=== PATIENT | female | born 1980 | race Caucasian/White ===

== ENCOUNTER 2016-06-11 11:50 | Observation (INO) | payer OTHER ==
[~2016-06-11] VITALS: Ht 162.6 cm; Wt 131.1 kg
[~2016-06-11 11:50] MED LIST: ALPR0.255 PO; IBUP-2070 PO; TRAM50TA4 PO
[2016-06-11] MEDS ORDERED: PREN1TAB80 PO (12:36)
[2016-06-11 12:37] VITALS: BP 114/66
== END 2016-06-11 13:00 | disposition home or self-care (01) ==
LOC: 4S 11:50
PROVIDERS: ADMIT Obstetrics & Gynecology; ATTEND Obstetrics & Gynecology
DX: Z34.93 Encounter for supervision of normal pregnancy, unspecified, third trimester (principal); Z3A.34 34 weeks gestation of pregnancy
CPT/HCPCS: 59025; G0378

== ENCOUNTER 2016-06-14 17:15 | Observation (INO) | payer OTHER ==
[~2016-06-14 17:15] MED LIST changes: +PREN1TAB80 PO
[2016-06-14] MEDS ORDERED: MACR100 PO (17:36)
[2016-06-14 17:37] VITALS: BP 119/71
== END 2016-06-14 18:05 | disposition home or self-care (01) ==
LOC: 4S 17:15
PROVIDERS: ADMIT Obstetrics & Gynecology; ATTEND Obstetrics & Gynecology
DX: O62.9 Abnormality of forces of labor, unspecified (principal); O23.43 Unspecified infection of urinary tract in pregnancy, third trimester; O12.23 Gestational edema with proteinuria, third trimester; Z3A.34 34 weeks gestation of pregnancy
CPT/HCPCS: 59025; G0378

== ENCOUNTER 2016-06-18 10:10 | Observation (INO) | payer OTHER ==
[~2016-06-18] VITALS: Ht 162.6 cm; Wt 128.4 kg
[~2016-06-18 10:10] MED LIST changes: -ALPR0.255 PO; -IBUP-2070 PO; +MACR100 PO; -TRAM50TA4 PO
[2016-06-18 11:03] VITALS: BP 109/55
== END 2016-06-18 12:35 | disposition home or self-care (01) ==
LOC: 4S 10:10
PROVIDERS: ADMIT Obstetrics & Gynecology; ATTEND Obstetrics & Gynecology
DX: O99.013 Anemia complicating pregnancy, third trimester (principal); O99.213 Obesity complicating pregnancy, third trimester; Z3A.35 35 weeks gestation of pregnancy
CPT/HCPCS: 59025; G0378

== ENCOUNTER 2016-06-22 09:00 | Observation (INO) | payer OTHER ==
[~2016-06-22] VITALS: Ht 157.5 cm; Wt 130.2 kg
[2016-06-22 09:15] VITALS: BP 116/65
== END 2016-06-22 09:35 | disposition home or self-care (01) ==
LOC: 4S 09:00
PROVIDERS: ADMIT Obstetrics & Gynecology; ATTEND Obstetrics & Gynecology
DX: Z34.93 Encounter for supervision of normal pregnancy, unspecified, third trimester (principal); Z3A.35 35 weeks gestation of pregnancy
CPT/HCPCS: 59025; G0378

== ENCOUNTER 2016-06-25 18:29 | Observation (INO) | payer OTHER ==
[2016-06-25 18:54] VITALS: BP 127/79
== END 2016-06-25 20:30 | disposition home or self-care (01) ==
LOC: 4S 18:29
PROVIDERS: ADMIT Obstetrics & Gynecology; ATTEND Obstetrics & Gynecology
DX: O99.213 Obesity complicating pregnancy, third trimester (principal); Z3A.36 36 weeks gestation of pregnancy
CPT/HCPCS: 59025; G0378

== ENCOUNTER 2016-06-26 22:30 | Observation (INO) | payer OTHER ==
[~2016-06-26] VITALS: Ht 162.6 cm; Wt 133.8 kg
[2016-06-27] VITALS: BP 114/59
[2016-06-27 00:35] LABS: APPEARANCE,URINE CLOUDY (CLEAR); GLUCOSE, URINE (UA) 500 mg/dL (NEGATIVE); KETONES,URINE NEGATIVE (NEGATIVE); LEUKOCYTE ESTERASE ,URINE MODERATE (NEGATIVE); OCCULT BLOOD,URINE NEGATIVE (NEGATIVE); PROTEIN,URINE NEGATIVE (NEGATIVE)
[2016-06-27 00:38] LABS: ADD UA MICROSCOPIC YES
[2016-06-27 00:52] LABS: CALCIUM OXALATE CRYSTALS,UR Few /LPF (None Seen); RBC,URINE 0-2 /HPF (0-2); SQUAMOUS EPITHELIAL CELL,UR Moderate /LPF (None Seen)
== END 2016-06-27 01:40 | disposition home or self-care (01) ==
LOC: 4S 22:30
PROVIDERS: ADMIT Obstetrics & Gynecology; ATTEND Obstetrics & Gynecology
DX: O26.893 Other specified pregnancy related conditions, third trimester (principal); R10.2 Pelvic and perineal pain; R35.0 Frequency of micturition; N89.8 Other specified noninflammatory disorders of vagina; Z3A.36 36 weeks gestation of pregnancy
CPT/HCPCS: 36415; 59025; 81001; 87086; 89060; G0378 ×2

== ENCOUNTER 2016-06-28 09:45 | Observation (INO) | payer OTHER ==
[~2016-06-28] VITALS: Ht 162.6 cm; Wt 129.3 kg
[2016-06-28 10:12] VITALS: BP 125/73
== END 2016-06-28 11:00 | disposition home or self-care (01) ==
LOC: 4S 09:45
PROVIDERS: ADMIT Obstetrics & Gynecology; ATTEND Obstetrics & Gynecology
DX: O26.893 Other specified pregnancy related conditions, third trimester (principal); R05 Cough; O62.9 Abnormality of forces of labor, unspecified; O09.523 Supervision of elderly multigravida, third trimester; Z3A.36 36 weeks gestation of pregnancy
CPT/HCPCS: 59025; G0378

== ENCOUNTER 2016-07-01 14:09 | Observation (INO) | payer OTHER ==
[~2016-07-01] VITALS: Ht 162.6 cm; Wt 131.1 kg
[~2016-07-01 14:09] MED LIST changes: -MACR100 PO
[2016-07-01 14:47] VITALS: BP 123/77
== END 2016-07-01 16:10 | disposition home or self-care (01) ==
LOC: 4S 14:09
PROVIDERS: ADMIT Obstetrics & Gynecology; ATTEND Obstetrics & Gynecology
DX: O09.523 Supervision of elderly multigravida, third trimester (principal); Z3A.37 37 weeks gestation of pregnancy
CPT/HCPCS: 59025; G0378

== ENCOUNTER 2016-07-04 11:55 | Observation (INO) | payer OTHER ==
[~2016-07-04] VITALS: Ht 162.6 cm; Wt 129.7 kg
[2016-07-04] MEDS ORDERED: LACT1CAP78 PO (12:05)
[2016-07-04 12:35] VITALS: BP 153/78
[2016-07-04 12:58] LABS: BASOPHILS # (AUTO) 0.04 K/uL (0.00-0.20); BASOPHILS % (AUTO) 0.4 % (0.0-2.0); EOSINOPHILS # (AUTO) 0.01 K/uL (0.00-0.70); EOSINOPHILS % (AUTO) 0.16 % (1.0-6.0); HEMOGLOBIN 12.1 g/dL (12.0-16.0); LYMPHOCYTES # (AUTO) 1.8 K/uL (1.0-4.8); LYMPHOCYTES % (AUTO) 19.5 % (22.0-44.0); MEAN CORPUSCULAR HEMOGLOBIN 27.7 pg (26.0-34.0); MEAN CORPUSCULAR HGB CONC 33.5 G/dL (31.0-37.0); MEAN CORPUSCULAR VOLUME 83 fL (80-100); MONOCYTES # (AUTO) 0.4 K/uL (0.1-1.0); MONOCYTES % (AUTO) 4.3 % (2.0-9.0); NEUTROPHILS % (AUTO) 75.6 % (40.0-70.0); PLATELET COUNT (AUTO) 302 K/uL (150-450); RED BLOOD CELL COUNT(AUTO) 4.36 MIL/uL (4.00-5.20); RED CELL DISTRIBUTION WIDTH 16.8 % (11.5-14.5); WHITE BLOOD COUNT (AUTO) 9.3 K/uL (4.5-11.0)
[2016-07-04 13:25] LABS: ANION GAP 12 mmol/L (8-16); CALCIUM, TOTAL 8.5 mg/dL (8.8-10.5); CARBON DIOXIDE 22 mmol/L (22-29); CHLORIDE 104 mmol/L (98-107); CREATININE 0.58 mg/dL (0.60-1.30); GLOMERULAR FILTR. RATE CALC > 60 mL/min (>60); SODIUM SERUM 138 mmol/L (136-145); UREA NITROGEN, BLOOD 5 mg/dL (7-18)
[2016-07-04 13:33] LABS: ALANINE AMINOTRANSFERASE 14 U/L (12-78); ASPARTATE AMINOTRANSFERASE 19 U/L (15-37); BILIRUBIN,TOTAL 0.3 mg/dL (0.1-1.0); TOTAL PROTEIN, SERUM 6.1 g/dL (6.4-8.2)
[2016-07-04 13:42] LABS: URIC ACID 4.4 mg/dL (2.6-7.2)
== END 2016-07-04 14:30 | disposition home or self-care (01) ==
LOC: 4S 11:55
PROVIDERS: ADMIT Obstetrics & Gynecology; ATTEND Obstetrics & Gynecology
DX: O26.893 Other specified pregnancy related conditions, third trimester (principal); R51 Headache; H53.9 Unspecified visual disturbance; R10.11 Right upper quadrant pain; R05 Cough; R09.3 Abnormal sputum; Z3A.37 37 weeks gestation of pregnancy
CPT/HCPCS: 36415; 59025; 76811; 80053; 81050; 84156; 84550; 85025; G0378

== ENCOUNTER 2016-07-05 18:40 | Observation (INO) | payer OTHER ==
[~2016-07-05] VITALS: Ht 162.6 cm; Wt 127.5 kg
[2016-07-05 18:21] VITALS: BP 125/76
[~2016-07-05 18:40] MED LIST changes: +LACT1CAP78 PO
== END 2016-07-05 19:45 | disposition home or self-care (01) ==
LOC: 4S 18:40
PROVIDERS: ADMIT Obstetrics & Gynecology; ATTEND Obstetrics & Gynecology
DX: O26.893 Other specified pregnancy related conditions, third trimester (principal); R05 Cough; O09.523 Supervision of elderly multigravida, third trimester; O99.213 Obesity complicating pregnancy, third trimester; O62.9 Abnormality of forces of labor, unspecified; O12.03 Gestational edema, third trimester; Z3A.37 37 weeks gestation of pregnancy
CPT/HCPCS: 59025; G0378

== ENCOUNTER 2016-07-09 14:35 | Observation (INO) | payer OTHER ==
[~2016-07-09] VITALS: Ht 162.6 cm; Wt 129.7 kg
[2016-07-09 15:03] VITALS: BP 118/59
== END 2016-07-09 21:00 | disposition home or self-care (01) ==
LOC: 4S 14:35
PROVIDERS: ADMIT Obstetrics & Gynecology; ATTEND Obstetrics & Gynecology
DX: O26.893 Other specified pregnancy related conditions, third trimester (principal); R03.0 Elevated blood-pressure reading, without diagnosis of hypertension; O09.523 Supervision of elderly multigravida, third trimester; O99.013 Anemia complicating pregnancy, third trimester; Z3A.38 38 weeks gestation of pregnancy
CPT/HCPCS: 59025; G0378

== ENCOUNTER 2016-07-13 12:10 | Observation (INO) | payer OTHER ==
[2016-07-13 13:39] VITALS: BP 104/62
== END 2016-07-13 13:30 | disposition home or self-care (01) ==
LOC: 4S 12:10
PROVIDERS: ADMIT Obstetrics & Gynecology; ATTEND Obstetrics & Gynecology
DX: O99.213 Obesity complicating pregnancy, third trimester (principal); O09.523 Supervision of elderly multigravida, third trimester; Z3A.38 38 weeks gestation of pregnancy
CPT/HCPCS: 59025; G0378

== ENCOUNTER 2016-07-15 16:57 | Observation (INO) | payer OTHER ==
[~2016-07-15] VITALS: Ht 162.6 cm; Wt 132.4 kg
[2016-07-15 17:32] VITALS: BP 105/52
== END 2016-07-15 17:43 | disposition home or self-care (01) ==
LOC: 4S 16:57
PROVIDERS: ADMIT Obstetrics & Gynecology; ATTEND Obstetrics & Gynecology
DX: O09.523 Supervision of elderly multigravida, third trimester (principal); Z3A.39 39 weeks gestation of pregnancy
CPT/HCPCS: 59025; G0378

== ENCOUNTER 2016-07-16 14:59 | Inpatient (IN) | payer OTHER ==
[~2016-07-16] VITALS: Ht 162.6 cm; Wt 132.4 kg
[~2016-07-16 14:59] MED LIST changes: +FentaNYL CITRATE-PF 100 MCG/2 ML VIAL IVP ONE; +MIDAZOLAM HCL 2 MG/2 ML VIAL IVP ONE
[2016-07-16] MEDS ORDERED: OXYTOCIN 30 UNITS/LACT RINGERS 500 ML IV ONE (16:19)
[2016-07-16] MEDS ORDERED: RINGERS SOLUTION,LACTATED 1,000 ML IV PRN (16:19)
[2016-07-16] MEDS ORDERED: CITRIC ACID/SODIUM CITRATE 30 ML SOLUTION UDCUP PO PRN (16:30)
[2016-07-16] MEDS ORDERED: METOCLOPRAMIDE HCL 5 MG/ML 2 ML VIAL IVP PRN (16:30)
[2016-07-16] MEDS ORDERED: DINOPROSTONE 10 MG VAGINAL SUPPOSITORY VG ONE ×2 (16:45→23:15)
[2016-07-16 17:08] LABS: BASOPHILS % (AUTO) 0.1 % (0.0-2.0); EOSINOPHILS % (AUTO) 0.2 % (1.0-6.0); HEMATOCRIT 34.1 % (36-46); HEMOGLOBIN 11.2 g/dL (12.0-16.0); LYMPHOCYTES # (AUTO) 1.7 K/uL (1.0-4.8); LYMPHOCYTES % (AUTO) 15.7 % (22.0-44.0); MEAN CORPUSCULAR HEMOGLOBIN 27.4 pg (26.0-34.0); MEAN CORPUSCULAR VOLUME 83 fL (80-100); MONOCYTES # (AUTO) 0.4 K/uL (0.1-1.0); NEUTROPHILS # (AUTO) 8.8 K/uL (1.8-7.7); RED BLOOD CELL COUNT(AUTO) 4.09 MIL/uL (4.00-5.20); RED CELL DISTRIBUTION WIDTH 16.3 % (11.5-14.5); WHITE BLOOD COUNT (AUTO) 10.9 K/uL (4.5-11.0)
[2016-07-16 17:19] VITALS: BP 114/57
[2016-07-16 19:46] LABS: RUBELLA SCREEN (IGG) IMMUNE (IMMUNE)
[2016-07-16] MEDS ORDERED: OXYGEN THERAPY IH SCH (20:00)
[2016-07-16] MEDS: RINGERS SOLUTION,LACTATED 1,000 ML IV SCH (22:40)
[2016-07-16] MEDS: FentaNYL CITRATE-PF 100 MCG/2 ML VIAL IVP PRN (23:35)
[2016-07-17] MEDS: FentaNYL CITRATE-PF 100 MCG/2 ML VIAL IVP PRN ×6 (01:07→04:35)
[2016-07-17] MEDS ORDERED: -PHARMACY NOTE- MISC ONE ×4 (04:45→11:15)
[2016-07-17] MEDS ORDERED: OXYTOCIN 30 UNITS/LACT RINGERS 500 ML IV PRN (04:59)
[2016-07-17] MEDS: RINGERS SOLUTION,LACTATED 1,000 ML IV SCH ×4 (06:12→22:02)
[2016-07-17] MEDS ORDERED: BUPIVACAINE HCL/PF 0.25% 10 ML VIAL ONE (06:21)
[2016-07-17] MEDS ORDERED: FentaNYL/BUPIV 0.125%/NS/PF 200 ML ED ONE (06:22)
[2016-07-17] MEDS ORDERED: FentaNYL/BUPIV 0.125%/NS/PF 200 ML ED PRN (06:47)
[2016-07-17] MEDS ORDERED: ONDANSETRON HCL 4 MG/2 ML VIAL IVP PRN ×2 (07:00→17:00)
[2016-07-17] MEDS ORDERED: NALBUPHINE HCL 10 MG/ML VIAL IVP PRN ×3 (07:00→17:00)
[2016-07-17] MEDS ORDERED: DEXAMETHASONE SOD PHOS 4 MG/ML VIAL IVP ONE (12:00)
[2016-07-17] MEDS ORDERED: EPHEDrine SULFATE 50 MG/ML VIAL IM ONE (12:00)
[2016-07-17] MEDS ORDERED: GLYCOPYRROLATE 0.2 MG/ML VIAL IM ONE (12:00)
[2016-07-17] MEDS ORDERED: LIDOCAINE HCL/PF 2% 5 ML VIAL INJ ONE (12:00)
[2016-07-17] MEDS ORDERED: LIDOCAINE HCL 2%/EPI 1:200,000/PF 10 ML VIAL ONE (12:11)
[2016-07-17] MEDS: DiphenhydrAMINE HCL 50 MG/ML VIAL IVP PRN ×2 (14:38→21:04)
[2016-07-17] MEDS ORDERED: CITRIC ACID/SODIUM CITRATE 30 ML SOLUTION UDCUP PO ONE (15:30)
[2016-07-17] MEDS ORDERED: METOCLOPRAMIDE HCL 5 MG/ML 2 ML VIAL IVP ONE (15:30)
[2016-07-17] MEDS ORDERED: BUPIVACAINE HCL/PF 0.5% 10 ML VIAL ONE (15:37)
[2016-07-17] MEDS ORDERED: OXYTOCIN 30 UNITS/LACT RINGERS 500 ML IV ONE (16:24)
[2016-07-17] MEDS ORDERED: OxyCODONE HCL/ACETAMINOPHEN 5-325 MG TABLET PO PRN (16:30)
[2016-07-17] MEDS ORDERED: LANOLIN 7 GM OINTMENT TP PRN (16:30)
[2016-07-17] MEDS ORDERED: FentaNYL CITRATE-PF 100 MCG/2 ML VIAL IVP PRN (17:00)
[2016-07-17] MEDS ORDERED: MEPERIDINE-PF 25 MG/ML SYRINGE IVP PRN (17:00)
[2016-07-17] MEDS ORDERED: NALOXONE HCL 0.4 MG/ML VIAL IVP PRN (17:00)
[2016-07-17] MEDS ORDERED: DiphenhydrAMINE HCL 50 MG/ML VIAL IVP PRN (17:00)
[2016-07-17] MEDS: NALBUPHINE HCL 10 MG/ML VIAL IVP SCH (18:18)
[2016-07-17] MEDS ORDERED: OXYGEN THERAPY IH SCH ×3 (20:00)
[2016-07-18] MEDS: NALBUPHINE HCL 10 MG/ML VIAL IVP SCH ×3 (00:53→12:23)
[2016-07-18] MEDS: RINGERS SOLUTION,LACTATED 1,000 ML IV SCH (06:08)
[2016-07-18 06:12] LABS: BASOPHILS % (AUTO) 0.2 % (0.0-2.0); EOSINOPHILS % (AUTO) 0 % (1.0-6.0); HEMATOCRIT 29.3 % (36-46); HEMOGLOBIN 9.5 g/dL (12.0-16.0); LYMPHOCYTES # (AUTO) 1.5 K/uL (1.0-4.8); LYMPHOCYTES % (AUTO) 12.5 % (22.0-44.0); MEAN CORPUSCULAR HEMOGLOBIN 27.4 pg (26.0-34.0); MEAN CORPUSCULAR HGB CONC 32.4 G/dL (31.0-37.0); MEAN CORPUSCULAR VOLUME 84 fL (80-100); MONOCYTES # (AUTO) 0.5 K/uL (0.1-1.0); MONOCYTES % (AUTO) 4.4 % (2.0-9.0); NEUTROPHILS # (AUTO) 9.8 K/uL (1.8-7.7); NEUTROPHILS % (AUTO) 82.9 % (40.0-70.0); RED BLOOD CELL COUNT(AUTO) 3.47 MIL/uL (4.00-5.20); WHITE BLOOD COUNT (AUTO) 11.9 K/uL (4.5-11.0)
[2016-07-18] MEDS: MAGNESIUM HYDROXIDE SUSPENSION 30 ML UDCUP PO SCH ×2 (08:51→20:59)
[2016-07-18] MEDS: OxyCODONE HCL/ACETAMINOPHEN 5-325 MG TABLET PO PRN ×2 (16:41→21:00)
[2016-07-18] MEDS: IBUPROFEN 800 MG TABLET PO PRN ×2 (18:31→23:57)
[2016-07-19] MEDS: OxyCODONE HCL/ACETAMINOPHEN 5-325 MG TABLET PO PRN ×4 (02:27→20:23)
[2016-07-19] MEDS: IBUPROFEN 800 MG TABLET PO PRN ×2 (05:45→12:20)
[2016-07-19] MEDS: MAGNESIUM HYDROXIDE SUSPENSION 30 ML UDCUP PO SCH (09:01)
[2016-07-20] MEDS: IBUPROFEN 800 MG TABLET PO PRN ×2 (00:03→05:57)
[2016-07-20] MEDS: OxyCODONE HCL/ACETAMINOPHEN 5-325 MG TABLET PO PRN (02:42)
[2016-07-20] MEDS ORDERED: TYL3B PO (09:50)
[2016-07-20] MEDS ORDERED: IBUP-2070 PO (09:51)
[2016-07-20] MEDS ORDERED: DSS100 PO (09:52)
== END 2016-07-20 12:00 | disposition home or self-care (01) | DRG 540 ==
LOC: 4S 14:59 → OBSVTOIN 14:59 → 4S 07-17 18:10
PROVIDERS: ADMIT Obstetrics & Gynecology; ATTEND Obstetrics & Gynecology
PROC: 10D00Z1 Extraction of Products of Conception, Low, Open Approach (ICD-10-PCS; principal; 2016-07-17)
PROC: 10907ZC Drainage of Amniotic Fluid, Therapeutic from Products of Conception, Via Natural or Artificial Opening (ICD-10-PCS; 2016-07-17)
DX: O14.93 Unspecified pre-eclampsia, third trimester (principal); O09.523 Supervision of elderly multigravida, third trimester; Z3A.39 39 weeks gestation of pregnancy; Z37.0 Single live birth
CPT/HCPCS: 76805; 80307; 86592; 86762; 86850; 86870; 86900; 86901; 87340; J0690; J1100; J1200; J2250; J2300; J2590; J2765; J3010; J3490; J7120